=== PATIENT | female | born 1995 ===

== ENCOUNTER 2021-01-02 11:06 | Outpatient (CLI) | payer OTHER | END 2021-01-02 11:57 | disposition home or self-care (01) | LOC: PRENATAL 11:06 | PROVIDERS: ATTEND Obstetrics & Gynecology Maternal & Fetal Medicine | DX: O35.3XX1 Maternal care for (suspected) damage to fetus from viral disease in mother, fetus 1 (principal); O35.0XX1 Maternal care for (suspected) central nervous system malformation in fetus, fetus 1; O98.512 Other viral diseases complicating pregnancy, second trimester; O28.1 Abnormal biochemical finding on antenatal screening of mother; Z36.89 Encounter for other specified antenatal screening; Z3A.20 20 weeks gestation of pregnancy ==

== ENCOUNTER 2021-05-13 09:19 | Inpatient (IN) | payer OTHER ==
[~2021-05-13] VITALS: Ht 157.5 cm; Wt 3.2 kg
[2021-05-13] MEDS ORDERED: PRENATABS RX T1 EACH PO (10:04)
[2021-05-16] MEDS ORDERED: SIMETHICONE125 M1 PO (12:26)
[2021-05-16] MEDS ORDERED: DOCUSATE SODIU100 MG PO (12:26)
[2021-05-16] MEDS ORDERED: PRENATABS RX T1 EACH PO (12:26)
[2021-05-16] MEDS ORDERED: IBUPROFEN800 MG PO (12:26)
== END 2021-05-16 14:10 | disposition home or self-care (01) | DRG 785 ==
LOC: LDR 09:19 → OB/GYN 09:19
PROVIDERS: ADMIT Obstetrics & Gynecology; ATTEND Obstetrics & Gynecology
PROC: 0UB70ZZ Excision of Bilateral Fallopian Tubes, Open Approach (ICD-10-PCS; 2021-05-13)
PROC: 4A1HXCZ Monitoring of Products of Conception, Cardiac Rate, External Approach (ICD-10-PCS; 2021-05-13)
PROC: 10D00Z1 Extraction of Products of Conception, Low, Open Approach (ICD-10-PCS; principal; 2021-05-13 11:15)
DX: O34.211 Maternal care for low transverse scar from previous cesarean delivery (principal); Z30.2 Encounter for sterilization; Z20.822 Contact with and (suspected) exposure to COVID-19; Z3A.39 39 weeks gestation of pregnancy; Z37.0 Single live birth